=== PATIENT | female | born 1940 | race Caucasian/White ===

== ENCOUNTER 2020-11-08 09:35 | Outpatient (REF) | payer MEDICARE, SELFPAY ==
[2020-11-08 10:11] LABS: Basophils Percent Auto 0.5 % (0-2); Eosinophils Absolute Auto 0.1 X10*3/uL (0.0-0.4); Eosinophils Percent Auto 1.7 % (0-4); Hematocrit 43.1 % (37-47); Hemoglobin 14.3 g/dl (12.0-16.0); Imm Gran Abs Auto 0.02 X10*3/uL (0.00-0.03); Imm Gran Pct Auto 0.3 % (0.0-0.4); Lymphocytes Absolute Auto 1.7 X10*3/uL (1.2-4.9); Lymphocytes Percent Auto 22.7 % (20-40); MANUAL DIFF FLAG NO; Mean Corpuscular HGB Conc 33.2 g/dl (31.0-35.0); Mean Corpuscular Hemoglobin 30.4 pg (27.0-33.0); Mean Corpuscular Volume 91.7 fL (80-98); Mean Platelet Volume 10.1 fL (9.4-12.3); Monocytes Absolute Auto 0.6 X10*3/uL (0.1-1.2); Monocytes Percent Auto 8.3 % (2-11); Neutrophils Percent Auto 66.5 % (45-73); Platelet Count 152 X10*3/uL (160-400); Red Cell Distribution Width 13.3 % (11.0-16.0); White Blood Count 7.6 X10*3/uL (4.8-10.8)
[2020-11-08 10:24] LABS: Estimated Average Glucose 197 mg/dL; Hemoglobin A1c % 8.5 %
[2020-11-08 10:44] LABS: Alanine Aminotransferase 12 U/L (0-31); Albumin Level 4.1 g/dL (3.5-5.0); Alkaline Phosphatase 62 U/L (39-117); Anion Gap 12 (12-20); Aspartate Amino Transferase 17 U/L (5-31); Bilirubin Total 0.6 mg/dL (0.0-1.0); Blood Urea Nitrogen 17 mg/dL (9-16); Calcium 9.2 mg/dL (8.4-10.2); Carbon Dioxide 31 mmol/L (22-29); Chloride 102 mmol/L (96-108); Cholesterol 168 mg/dL; Estimated Glomerular Filt Rate > 60; Glucose Fasting 158 mg/dL (60-99); HDL Cholesterol 47 mg/dL; LDL Cholesterol Calculated 93 mg/dl; Potassium 4.5 mmol/l (3.3-5.1); Sodium 140 mmol/L (135-145); Total Protein 6.8 g/dL (6.5-8.0); Triglycerides 143 mg/dL
[2020-11-08 11:44] LABS: Reflex LDLD? No
== END 2020-11-08 09:36 | disposition home or self-care (01) ==
LOC: HO.LAB 09:35
PROVIDERS: PCP Internal Medicine; Visit Provider Internal Medicine
DX: E78.00 Pure hypercholesterolemia, unspecified (principal); I10 Essential (primary) hypertension; E04.9 Nontoxic goiter, unspecified; E11.42 Type 2 diabetes mellitus with diabetic polyneuropathy; D36.9 Benign neoplasm, unspecified site
CPT/HCPCS: 36415; 80053; 80061; 83036; 84443; 85025

== ENCOUNTER 2021-01-26 12:44 | Outpatient (REF) | payer MEDICARE, SELFPAY ==
--- NOTE | ~2021-01-26 | CT_ITS ---
EXAMINATION: CT CHEST WITHOUT CONTRAST CLINICAL INFORMATION: Lung nodule. COMPARISON: CT chest 11/26/[address] chest 04/28/2019 TECHNIQUE: Multidetector volumetric CT imaging of the chest was done. Axial MIP volume rendering provided. Sagittal and coronal reformatted images were obtained. This CT examination was performed using dose optimization techniques as appropriate, variously including the following: *Automated exposure control *Adjustment of mA and/or kV according to patient size (this includes techniques or standardized protocols for targeted exams where dose is matched to indication/reason for exam; i.e. 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 LUNGS: The lungs are well-expanded without any acute pneumonic process. There are multiple bilateral pulmonary nodules. A dominant left lower lobe pulmonary nodule measures 6 mm on image 263/9, a dominant nodule in the right lower lobe measures 5 mm posterior pericardium on axial image 269/9, and a 4 mm nodule in the right basal segment of lower lobe is also unchanged. There are no new pulmonary nodules visualized. MEDIASTINUM: The left thyroid lobe is heterogenous but not enlarged. The right lobe appears removed. Central trachea and the bronchi are widely patent. The heart size and the great vessels are normal caliber. Nonspecific calcification anterior to the ascending aorta likely lymph node calcifications, stable. The great vessels and the heart size are normal. There are coronary artery calcifications present. No pericardial effusion seen. No abnormal size mediastinal or hilar lymph nodes seen. PLEURA: There is no pleural effusion. No pleural mass or thickening. AXILLA: No lymphadenopathy. UPPER ABDOMEN: Visualized liver, spleen, pancreas, and left adrenal gland appear unremarkable. The right adrenal gland is slightly prominent, known 1.6 cm adenoma. OSSEOUS STRUCTURES: No lytic or sclerotic process seen. There is mild spondylosis mid dorsal spine. CT/CT chest wo con IMPRESSION: Multiple bilateral pulmonary nodules. These are stable over 24 months. Recommend long-term followup in 1-2 years.
[2021-01-26 14:32] LABS: Creatinine Urine 66.93 mg/dL; Microalbumin Urine < 5.0 mg/L
== END 2021-01-26 12:45 | disposition home or self-care (01) ==
LOC: HO.CT 12:44
PROVIDERS: Visit Provider Internal Medicine
DX: R91.1 Solitary pulmonary nodule (principal); D36.9 Benign neoplasm, unspecified site; E11.42 Type 2 diabetes mellitus with diabetic polyneuropathy; E04.9 Nontoxic goiter, unspecified; E78.00 Pure hypercholesterolemia, unspecified; I10 Essential (primary) hypertension
CPT/HCPCS: 71250; 82043

== ENCOUNTER 2021-06-09 10:27 | Outpatient (REF) | payer MEDICARE, SELFPAY ==
[2021-06-09 10:59] LABS: Alanine Aminotransferase 12 U/L (0-31); Alkaline Phosphatase 61 U/L (39-117); Aspartate Amino Transferase 16 U/L (5-31); Bilirubin Direct 0.2 mg/dL (0.0-0.5); Bilirubin Total 0.6 mg/dL (0.0-1.0); Cholesterol 173 mg/dL; Estimated Average Glucose 223 mg/dL; Glucose Fasting 173 mg/dL (60-99); HDL Cholesterol 41 mg/dL; Hemoglobin A1c % 9.4 %; LDL Cholesterol Calculated 97 mg/dl; Total Protein 6.8 g/dL (6.5-8.0); Triglycerides 179 mg/dL
[2021-06-09 11:19] LABS: Vitamin D 25-OH Total 17.3 ng/mL (>30)
[2021-06-09 11:49] LABS: Reflex LDLD? No
== END 2021-06-09 10:28 | disposition home or self-care (01) ==
LOC: HO.LNP 10:27
PROVIDERS: Visit Provider Internal Medicine
DX: E11.42 Type 2 diabetes mellitus with diabetic polyneuropathy (principal); E78.00 Pure hypercholesterolemia, unspecified; M85.88 Other specified disorders of bone density and structure, other site
CPT/HCPCS: 80061; 80076; 82306; 82947; 83036

== ENCOUNTER 2021-07-04 08:22 | Outpatient (REF) | payer MEDICARE, SELFPAY ==
--- NOTE | ~2021-07-04 | US_ITS ---
EXAMINATION: US ABDOMEN COMPLETE CLINICAL INFORMATION: Calculus of gallbladder. COMPARISON: CT abdomen with intravenous contrast dated 12/08/2015. TECHNIQUE: Real-time imaging of the abdominal viscera. FINDINGS: PANCREAS: Normal. ABDOMINAL AORTA: The proximal, mid, and distal segments are normal in caliber. INFERIOR VENA CAVA: Visualized portions are normal. LIVER: The liver is normal in size. The liver contour is normal. There is diffuse increased liver parenchymal echogenicity, consistent with hepatic steatosis. No focal hepatic lesion. There is no intrahepatic biliary duct dilatation seen. GALLBLADDER: Normal. The gallbladder is physiologically distended without evidence of stones, sludge, polyps, wall thickening or pericholecystic fluid. COMMON BILE DUCT: Normal in caliber measuring 0.56 cm in diameter. RIGHT KIDNEY: Normal. No hydronephrosis. No renal calculi or focal parenchymal lesions. The kidney measures 10.8 cm in maximum dimension. LEFT KIDNEY: Left midpole simple renal cyst measuring 1.8 cm, unchanged. Midpole renal stone measuring 0.7 cm, unchanged. No hydronephrosis. The kidney measures 9.3 cm in maximum dimension. SPLEEN: Normal. The spleen measures 9.2 cm in maximum dimension. FREE FLUID: None. US/US abdomen complete IMPRESSION: 1. Increased hepatic parenchymal echogenicity, which could represent mild steatosis. No focal parenchymal lesion or biliary ductal dilatation. 2. Stable left midpole simple-appearing renal cysts. Stable left midpole renal stone measuring 0.7 cm. No hydronephrosis. 3. No cholelithiasis, gallbladder wall thickening, or pericholecystic free fluid to suggest acute cholecystitis.
== END 2021-07-04 08:23 | disposition home or self-care (01) ==
LOC: HO.HMGCX 08:22
PROVIDERS: PCP Internal Medicine; Visit Provider Internal Medicine
DX: K80.20 Calculus of gallbladder without cholecystitis without obstruction (principal)
CPT/HCPCS: 76700

== ENCOUNTER 2021-07-18 10:53 | Day surgery (SDC) | payer MEDICARE, SELFPAY ==
--- NOTE | 2021-07-15 10:09 | HO.ANESPROP2 ---
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 Urinary incontinence Surgical History Surgical History History of cataract extraction History of ERCP History of hysterectomy Hx of colonoscopy Hx of esophagogastroduodenoscopy Social History Social History Patient Tobacco Use Status: Never used Tobacco Use of substances other than those prescribed or required for medical reasons: No Are you DNR?: No Advance Directives: No Advance Directives Information Provided: Yes Meds Allergies Allergy/AdvReac Type Severity Reaction Status Date / Time atropine [ATROPINE] Allergy Intermediate HIGH BP Verified 07/18/21 12:04 Iodinated Contrast Media Allergy Intermediate RASH Verified 07/18/21 12:04 [CONTRAST, IV] iodine [IODINE] Allergy Intermediate RASH Verified 07/18/21 12:04 Home Medications Medication Instructions Recorded Confirmed Last Taken Type estradiol 0.05 mg/24 hr weekly 1 patch TRANSDERMAL QWEEK 07/15/21 07/15/21 Unknown History transdermal patch glyburide 5 mg tablet 1 tab PO BID 07/15/21 07/15/21 Unknown History latanoprost 0.005 % eye drops 1 drp BEDTIME 07/15/21 07/15/21 Unknown History lisinopril 10 mg tablet 1 tab PO DAILY 07/15/21 07/15/21 Unknown History metformin 500 mg tablet 1 tab PO DAILY 07/15/21 07/15/21 Unknown History multivitamin 1 tab PO DAILY 07/15/21 07/15/21 Unknown History rosuvastatin 20 mg tablet 1 tab PO DAILY 07/15/21 07/15/21 Unknown History Exam Exam Date and Time: July 15, 2021 100 Assessment and Plan Assessment Anesthesia Assessment: Chart Reviewed Documented by User: Charlene Crews MD 07/18/21 17:06 [facility] Past Medical History Medical History (Updated 07/18/21 @ 12:03 by Mary Jo Cooley, TOM) Elevated cholesterol Glaucoma Goiter HTN (hypertension) HX: benign breast biopsy Kidney stone 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 Urinary incontinence Family History Family history of problems with anesthesia: No Surgical History Surgical History History of cataract extraction History of ERCP History of hysterectomy Hx of colonoscopy Hx of esophagogastroduodenoscopy History of Problems with Anesthesia: Yes (PONV) Social History Social History Patient Tobacco Use Status: Never used Tobacco Use of substances other than those prescribed or required for medical reasons: No Are you DNR?: No Advance Directives: No Advance Directives Information Provided: Yes Meds Allergies Allergy/AdvReac Type Severity Reaction Status Date / Time atropine [ATROPINE] Allergy Intermediate HIGH BP Verified 07/18/21 12:04 Iodinated Contrast Media Allergy Intermediate RASH Verified 07/18/21 12:04 [CONTRAST, IV] iodine [IODINE] Allergy Intermediate RASH Verified 07/18/21 12:04 Home Medications Medication Instructions Recorded Confirmed Last Taken Type estradiol 0.05 mg/24 hr weekly 1 patch TRANSDERMAL QWEEK 07/15/21 07/15/21 Unknown History transdermal patch glyburide 5 mg tablet 1 tab PO BID 07/15/21 07/15/21 Unknown History latanoprost 0.005 % eye drops 1 drp BEDTIME 07/15/21 07/15/21 Unknown History lisinopril 10 mg tablet 1 tab PO DAILY 07/15/21 07/15/21 Unknown History metformin 500 mg tablet 1 tab PO DAILY 07/15/21 07/15/21 Unknown History multivitamin 1 tab PO DAILY 07/15/21 07/15/21 Unknown History rosuvastatin 20 mg tablet 1 tab PO DAILY 07/15/21 07/15/21 Unknown History Exam Height,Weight and Vital Signs: Height 5 ft 1 in Weight 58.967 kg Vital Signs Temp Pulse Resp BP Pulse Ox 07/18/21 12:04 98.6 F 76 16 166/75 H 98 Pertinent Lab Results Pertinent Lab Results: Lab Results 07/18/21 Range/Units 12:16 POC Glucose 170 H (60-115) mg/dL Airway Mallampati Class: II TM Dist: >3cm Neck ROM: Full Denture: Upper Partial: Lower Heart: RRR Lungs: CTAB Assessment and Plan Assessment Anesthesia Assessment: Anesthesia Plan Discussed Final Anesthetic Review Family History of Problems with Anesthesia: No History of Problems with Anesthesia: Yes (PONV) NPO: Yes ASA Class: II Final Preanesthetic Review: No Changes in Pt Med Stat, Meds/Allgs Chart Reviewed, Consent Obtained/Reviewed and Anes Risks/Benef Reviewed Patient Risk: Low Procedure Risk: Low Assessment/Block/Sedation in SS: Assess/Block/Sedation-SS Anesthetic Plan Anesthetic Plan: MAC: Disposition: Standard PACU
[2021-07-18 12:04] VITALS: BP 166/75; PULSE 76; RESP 16; TEMP 37; O2SAT 98; BMI 24.5
[2021-07-18 12:20] LABS: Glucose, Whole Blood 170 mg/dL (60-115)
[2021-07-18] MEDS: Lactated Ringers 1,000 ML 100 ML IVCONT (12:33)
[2021-07-18 14:25] VITALS: BP 92/45; PULSE 89; RESP 18; TEMP 36.1; O2SAT 98
--- NOTE | 2021-07-18 14:28 | PM.OP ---
Brief Operative Note Date of Service: 07/18/21 Pre-op diagnosis: Abdominal pain, History of ampullary villous adenoma Post-op diagnosis: other (Gastritis, Gastric polyps, Hiatal hernia, Normal major ampulla) Procedure: EGD with biopsy Surgeon: Gutierrez Brito Anesthesia: MAC Was an Gas Fitter Helper used for this Procedure?: No Estimated blood loss (mL): 4.0 Pathology: other (A. Gastric antrum) Condition: stable Disposition: PACU
[2021-07-18 14:40] VITALS: BP 123/61; PULSE 88; RESP 16; O2SAT 96
[2021-07-18 14:56] VITALS: BP 139/70; PULSE 84; RESP 16; O2SAT 96
[2021-07-18] MEDS: ondansetron HCL 4 MG/2 ML VIAL IVPUSH (15:00)
[2021-07-18 15:10] VITALS: BP 142/70; PULSE 83; RESP 16; TEMP 36.1; O2SAT 96
[2021-07-18 15:25] VITALS: BP 144/77; PULSE 76; RESP 16; TEMP 36.1; O2SAT 97
--- NOTE | 2021-07-18 20:18 | OP_ITS ---
SURGEON: Gutierrez Brito MD INDICATIONS: The patient presents for evaluation of abdominal pain and a previous history of an ampullary tubulovillous adenoma. Full consent has been obtained from her for this, including risks of bleeding and perforation. PREOPERATIVE DIAGNOSIS: POSTOPERATIVE DIAGNOSIS: PROCEDURE PERFORMED: Esophagogastroduodenoscopy with biopsies. ESTIMATED BLOOD LOSS: COMPLICATIONS: ANESTHESIA: Monitored anesthesia care and glucagon 1 mg IV x1 dose. ASSISTANTS: SPECIMENS: PREOPERATIVE DIAGNOSES: Abdominal pain and history of ampullary tubulovillous adenoma. POSTOPERATIVE DIAGNOSES: Abdominal pain and history of ampullary tubulovillous adenoma, gastritis, gastric polyps, hiatal hernia, normal major ampulla. DESCRIPTION OF PROCEDURE: The patient was placed in the left lateral decubitus position. The Olympus video gastroscope was passed in the posterior oropharynx and upper esophagus under direct vision. The scope was passed slowly into the distal esophagus. The gastroesophageal junction appeared normal at 35 cm. There was no sign of any esophagitis nor Akers's esophagus. The scope entered into the stomach. There was a small hiatal hernia. The scope was advanced to pylorus and the duodenum was cannulated to the descending portion. The duodenum including the bulb appeared normal without mass or ulceration. The scope was withdrawn back into the stomach. The gastric antrum appeared normal with good peristalsis. The scope was retroflexed visualizing the proximal stomach carefully, which appeared normal other than multiple hyperplastic appearing gastric polyps. In the forward viewing position along the posterior wall in the body of the stomach, was areas of erosive gastritis. There was no ulceration or mass. The scope was advanced back to the antrum and biopsies were obtained to inspect for H pylori. Scope was withdrawn back into the esophagus. The esophageal mucosa appeared normal. The scope was withdrawn from the patient. The Olympus video duodenoscope was then passed into the posterior oropharynx and upper esophagus. Scope was advanced to the stomach and then into the pylorus. The duodenum was cannulated the descending portion. The region of the major papilla was visualized and appeared consistent with a previous known sphincterotomy, but without any sign of ampullary mass nor ulceration. Biopsies were not obtained. At that point, the scope was then withdrawn from the patient. She tolerated the procedure well and was returned to the recovery area in stable condition. IMPRESSION: 1. Erosive gastritis, rule out Helicobacter pylori. 2. Hiatal hernia. 3. Proximal gastric polyps. 4. Normal major ampulla. PLAN: The results of biopsy will be checked. If Helicobacter pylori is present in the gastric biopsies, we could consider treating that given the findings in the more proximal stomach with gastritis and her abdominal pain. At this point, she does report that she is feeling somewhat better, but still having some residual abdominal discomfort. She had been on Prilosec in the past, but I shall put her back on omeprazole 20 mg daily for at least a couple of months and then see her in followup for further evaluation. She was advised to stay off all aspirin and NSAIDs long-term. MD ALBERTA Sims/SERENA / [id number]
== END 2021-07-18 15:51 | disposition home or self-care (01) ==
PROVIDERS: PCP Internal Medicine; Visit Provider Internal Medicine
PROC: 0DJ08ZZ Inspection of Upper Intestinal Tract, Via Natural or Artificial Opening Endoscopic (ICD-10-PCS; CPT 43235; principal; 2021-07-18 12:40)
DX: K29.50 Unspecified chronic gastritis without bleeding (principal); Z86.018 Personal history of other benign neoplasm; R10.11 Right upper quadrant pain; K31.7 Polyp of stomach and duodenum; K44.9 Diaphragmatic hernia without obstruction or gangrene; I10 Essential (primary) hypertension; E11.9 Type 2 diabetes mellitus without complications; Z79.84 Long term (current) use of oral hypoglycemic drugs; Z79.899 Other long term (current) drug therapy; Z87.442 Personal history of urinary calculi
CPT/HCPCS: 43239; 82947; 88305; 88342; J1610; J2405; J2765

== ENCOUNTER 2021-11-22 10:45 | Outpatient (REF) | payer MEDICARE, SELFPAY ==
[2021-11-22 10:48] LABS: MANUAL DIFF FLAG NO
[2021-11-22 11:24] LABS: Basophils Percent Auto 0.4 % (0-2); Eosinophils Absolute Auto 0.1 X10*3/uL (0.0-0.4); Eosinophils Percent Auto 1.6 % (0-4); Hematocrit 42.7 % (37.0-47.0); Hemoglobin 13.9 g/dl (12.0-16.0); Imm Gran Abs Auto 0.01 X10*3/uL (0.00-0.03); Imm Gran Pct Auto 0.1 % (0.0-0.4); Lymphocytes Percent Auto 26.8 % (20-40); Mean Corpuscular HGB Conc 32.6 g/dl (31.0-35.0); Mean Corpuscular Hemoglobin 29.8 pg (27.0-33.0); Mean Corpuscular Volume 91.6 fL (80.0-98.0); Mean Platelet Volume 10.9 fL (9.4-12.3); Monocytes Absolute Auto 0.7 X10*3/uL (0.1-1.2); Monocytes Percent Auto 9.2 % (2-11); Neutrophils Absolute Auto 4.6 x10*3/uL (2.0-8.3); Neutrophils Percent Auto 61.9 % (45-73); Platelet Count 170 X10*3/uL (160-400); Red Blood Count 4.66 X10*6/uL (4.20-5.50); Red Cell Distribution Width 13.5 % (11.0-16.0); White Blood Count 7.4 X10*3/uL (4.8-10.8)
[2021-11-22 11:36] LABS: Alanine Aminotransferase 19 U/L (0-31); Alkaline Phosphatase 68 U/L (39-117); Anion Gap 10 (12-20); Aspartate Amino Transferase 18 U/L (5-31); Bilirubin Total 0.3 mg/dL (0.0-1.0); Blood Urea Nitrogen 15 mg/dL (9-16); Calcium 9.3 mg/dL (8.4-10.2); Carbon Dioxide 31 mmol/L (22-29); Chloride 104 mmol/L (96-108); Cholesterol 159 mg/dL; Estimated Glomerular Filt Rate > 60; Glucose Fasting 161 mg/dL (60-99); HDL Cholesterol 44 mg/dL; LDL Cholesterol Calculated 89 mg/dl; Potassium 4.3 mmol/L (3.3-5.1); Sodium 141 mmol/L (135-145); Total Protein 6.8 g/dL (6.5-8.0); Triglycerides 133 mg/dL
[2021-11-22 11:40] LABS: Estimated Average Glucose 183 mg/dL
[2021-11-22 11:57] LABS: TSH reflex Free T4 5.07 uIU/mL (0.32-4.0); Vitamin D 25-OH Total 28.8 ng/mL (>30)
[2021-11-22 12:34] LABS: Free T4 (Free Thyroxine) 1.06 ng/dL (0.71-1.85)
[2021-11-22 13:45] LABS: Reflex LDLD? No
== END 2021-11-22 10:46 | disposition home or self-care (01) ==
LOC: HO.LNP 10:45
PROVIDERS: Visit Provider Internal Medicine
DX: E11.42 Type 2 diabetes mellitus with diabetic polyneuropathy (principal); E78.00 Pure hypercholesterolemia, unspecified; I10 Essential (primary) hypertension; E04.9 Nontoxic goiter, unspecified; E55.9 Vitamin D deficiency, unspecified
CPT/HCPCS: 80053; 80061; 82306; 83036; 84439; 84443; 85025

== ENCOUNTER 2021-11-29 14:24 | Outpatient (REF) | payer MEDICARE, SELFPAY ==
[2021-11-29 14:39] LABS: Appearance Urine CLEAR; Color Urine YELLOW; Glucose Urine UA NEG (NEG); Leukocyte Esterase Urine NEG (NEG); Nitrite Urine NEG (NEG); PH 6.5 (5.0-8.0); Specific Gravity - Urine <= 1.005 (1.005-1.025); Urine Blood NEG (NEG); Urine Ketones NEG (NEG); Urine Protein NEG (NEG-TRACE)
[2021-11-29 14:49] LABS: RBC Urine 0 /HPF (0); Squamous Epithelial Cell Urine 1+ /LPF; WBC Urine 0 /HPF (0-4)
[2021-11-29 14:50] LABS: Bacteria Urine 1+ /LPF
[2021-11-29 15:10] LABS: Creatinine Urine 71.79 mg/dL; Microalbumin Urine < 5.0 mg/L
== END 2021-11-29 14:25 | disposition home or self-care (01) ==
LOC: HO.LNP 14:24
PROVIDERS: Visit Provider Internal Medicine
DX: E11.42 Type 2 diabetes mellitus with diabetic polyneuropathy (principal); I10 Essential (primary) hypertension; E78.00 Pure hypercholesterolemia, unspecified
CPT/HCPCS: 81001; 82043

== ENCOUNTER 2022-01-23 13:23 | Outpatient (REF) | payer MEDICARE, SELFPAY ==
--- NOTE | ~2022-01-23 | CT_ITS ---
EXAMINATION: CT CHEST WITHOUT CONTRAST CLINICAL INFORMATION: Pulmonary nodule COMPARISON: Previous chest x-ray most recent January 2021 TECHNIQUE: Multidetector volumetric CT imaging of the chest was done. Axial MIP volume rendering provided. Sagittal and coronal reformatted images were obtained. This CT examination was performed using dose optimization techniques as appropriate, variously including the following: *Automated exposure control *Adjustment of mA and/or kV according to patient size (this includes techniques or standardized protocols for targeted exams where dose is matched to indication/reason for exam; i.e. extremities or head) *Use of iterative reconstruction technique DLP: 130 mGy-cm FINDINGS: LUNGS: The small pulmonary nodules are stable. Largest pulmonary nodules measure 6 mm in the right lower lobe axial image 368 and 6 mm in the left lower lobe axial image 372 series 7. No new pulmonary nodule is seen. MEDIASTINUM: The right lobe of the thyroid gland has been removed. There are calcifications anterior to the aortic arch that are stable and may represent calcified lymph nodes. No enlarged lymph nodes are seen. There is coronary artery and aortic valve calcified. The heart does not appear enlarged. The thoracic aorta is normal in caliber. There is no pericardial effusion. PLEURA: There is no pleural effusion. No pleural mass or thickening. AXILLA: There is a subcutaneous soft tissue mass in the upper back slightly to the right of midline that is stable axial image 10 series. No enlarged axillary lymph nodes. UPPER ABDOMEN: Small left renal calcifications questionable for stone versus vascular calcifications. Partially visualized curvilinear calcification in the upper pole left kidney probably representing a cyst with wall calcification. Stable low-attenuation right adrenal nodule and calcification.. OSSEOUS STRUCTURES: There are degenerative changes of the spine. CT/CT chest wo con IMPRESSION: Stable pulmonary nodules, largest measuring 6 mm in the bilateral lower lobes coronary artery and aortic valve calcification. Stable abdominal findings. Post right thyroidectomy. Fleischner guidelines were followed.
== END 2022-01-23 13:24 | disposition home or self-care (01) ==
LOC: HO.CT 13:23
PROVIDERS: PCP Internal Medicine; Visit Provider Internal Medicine
DX: R91.1 Solitary pulmonary nodule (principal)
CPT/HCPCS: 71250

== ENCOUNTER 2022-05-29 10:59 | Outpatient (REF) | payer MEDICARE, SELFPAY ==
[2022-05-29 11:52] LABS: Alanine Aminotransferase 17 U/L (0-31); Albumin Level 4.1 g/dL (3.5-5.0); Alkaline Phosphatase 61 U/L (39-117); Aspartate Amino Transferase 18 U/L (5-31); Bilirubin Direct 0.3 mg/dL (0.0-0.5); Bilirubin Total 0.4 mg/dL (0.0-1.0); Cholesterol 169 mg/dL; Estimated Average Glucose 160 mg/dL; HDL Cholesterol 43 mg/dL; Hemoglobin A1c % 7.2 %; LDL Cholesterol Calculated 105 mg/dl; Total Protein 6.7 g/dL (6.5-8.0); Triglycerides 108 mg/dL
[2022-05-29 13:28] LABS: Reflex LDLD? No
== END 2022-05-29 11:00 | disposition home or self-care (01) ==
LOC: HO.LNP 10:59
PROVIDERS: Visit Provider Internal Medicine
DX: E11.42 Type 2 diabetes mellitus with diabetic polyneuropathy (principal); E78.00 Pure hypercholesterolemia, unspecified
CPT/HCPCS: 80061; 80076; 83036

== ENCOUNTER 2022-06-05 15:45 | Outpatient (REF) | payer MEDICARE, SELFPAY ==
[2022-06-05 16:26] LABS: Creatinine Urine 81.75 mg/dL; Microalbum/Creatinine Ratio Ur 6.1 ug/mg cr
== END 2022-06-05 15:46 | disposition home or self-care (01) ==
LOC: HO.LNP 15:45
PROVIDERS: Visit Provider Internal Medicine
DX: E11.42 Type 2 diabetes mellitus with diabetic polyneuropathy (principal)
CPT/HCPCS: 82043

== ENCOUNTER 2022-12-01 10:56 | Outpatient (REF) | payer MEDICARE, SELFPAY ==
[2022-12-01 11:01] LABS: MANUAL DIFF FLAG NO
[2022-12-01 11:04] LABS: Basophils Percent Auto 0.7 % (0-2); Eosinophils Absolute Auto 0.1 X10*3/uL (0.0-0.4); Eosinophils Percent Auto 1.7 % (0-4); Hematocrit 43.4 % (37.0-47.0); Hemoglobin 14.4 g/dl (12.0-16.0); Imm Gran Abs Auto 0.01 X10*3/uL (0.00-0.03); Imm Gran Pct Auto 0.2 % (0.0-0.4); Lymphocytes Absolute Auto 1.6 X10*3/uL (1.2-4.9); Lymphocytes Percent Auto 27.8 % (20-40); Mean Corpuscular HGB Conc 33.2 g/dl (31.0-35.0); Mean Corpuscular Hemoglobin 30.1 pg (27.0-33.0); Mean Corpuscular Volume 90.8 fL (80.0-98.0); Mean Platelet Volume 10.3 fL (9.4-12.3); Monocytes Absolute Auto 0.6 X10*3/uL (0.1-1.2); Monocytes Percent Auto 10.3 % (2-11); Neutrophils Absolute Auto 3.4 x10*3/uL (2.0-8.3); Neutrophils Percent Auto 59.3 % (45-73); Platelet Count 152 X10*3/uL (160-400); Red Blood Count 4.78 X10*6/uL (4.20-5.50); Red Cell Distribution Width 13.2 % (11.0-16.0); White Blood Count 5.7 X10*3/uL (4.8-10.8)
[2022-12-01 11:22] LABS: Alanine Aminotransferase 14 U/L (0-31); Alkaline Phosphatase 62 U/L (39-117); Anion Gap 13 (12-20); Aspartate Amino Transferase 20 U/L (5-31); Bilirubin Total 0.6 mg/dL (0.0-1.0); Blood Urea Nitrogen 18 mg/dL (9-16); Calcium 9.1 mg/dL (8.4-10.2); Carbon Dioxide 30 mmol/L (22-29); Chloride 103 mmol/L (96-108); Cholesterol 185 mg/dL; Estimated Glomerular Filt Rate > 60; Glucose Fasting 154 mg/dL (60-99); HDL Cholesterol 42 mg/dL; LDL Cholesterol Calculated 114 mg/dl; Potassium 4.3 mmol/L (3.3-5.1); Sodium 142 mmol/L (135-145); Total Protein 6.8 g/dL (6.5-8.0); Triglycerides 148 mg/dL
[2022-12-01 11:36] LABS: Estimated Average Glucose 194 mg/dL; Hemoglobin A1c % 8.4 %
[2022-12-01 11:40] LABS: Vitamin D 25-OH Total 23.5 ng/mL (>30)
== END 2022-12-01 10:57 | disposition home or self-care (01) ==
LOC: HO.LNP 10:56
PROVIDERS: PCP Internal Medicine; Visit Provider Internal Medicine
DX: I10 Essential (primary) hypertension (principal); E04.9 Nontoxic goiter, unspecified; E11.42 Type 2 diabetes mellitus with diabetic polyneuropathy; E78.00 Pure hypercholesterolemia, unspecified; E55.9 Vitamin D deficiency, unspecified
CPT/HCPCS: 80053; 80061; 82306; 83036; 84443; 85025

== ENCOUNTER 2022-12-08 15:56 | Outpatient (REF) | payer MEDICARE, SELFPAY ==
[2022-12-08 16:16] LABS: Appearance Urine Clear; Color Urine Yellow; Glucose Urine UA Negative (Negative); Leukocyte Esterase Urine Negative (Negative); Nitrite Urine Negative (Negative); Specific Gravity - Urine 1.015 (1.005-1.025); Urine Blood Negative (Negative); Urine Ketones Negative (Negative); Urine Protein Negative (Neg-Trace)
[2022-12-08 16:24] LABS: Bacteria Urine None Seen (None Seen); Hyaline Casts Urine 0-2 /LPF (0-2); RBC Urine 0-2 /HPF (0-2); Squamous Epithelial Cell Urine 0-2 /HPF (0-2); WBC Urine 0-5 /HPF (0-5)
[2022-12-08 16:28] LABS: Creatinine Urine 80.88 mg/dL; Microalbum/Creatinine Ratio Ur 7.4 ug/mg cr
== END 2022-12-08 15:57 | disposition home or self-care (01) ==
LOC: HO.LNP 15:56
PROVIDERS: Visit Provider Internal Medicine
DX: E11.42 Type 2 diabetes mellitus with diabetic polyneuropathy (principal)
CPT/HCPCS: 81001; 82043

== ENCOUNTER 2023-04-30 12:53 | Outpatient (RCR) | payer OTHER, MEDICARE, SELFPAY ==
[2023-04-30 13:00] VITALS: BP 149/69; PULSE 72
--- NOTE | 2023-04-30 14:07 | MHC.PT.EP ---
[facility] [place] Office [place] [facility] [place] Office [address] [phone] F: [phone] F: [phone] F: [phone] F: [phone] Physical Therapy Plan of Care Date of Evaluation: Date of Surgery: NA Diagnosis: Vertigo Assessment: Nathalia is a 83 year old female who is referred to PT for vertigo . She reports of having initial onset of vertigo after a fall about 2 months back where she hit her head and had LOC. She was d/c home after this fall and was doing good for about 6 weeks when she had sudden onset of dizziness and fell on her knees. She went to ED and was sent home with home PT and was advised to follow up outpatient for vertigo. On PT examination she presented with intact saccades, smooth pursuit, visual tracking, DVA, head thrust and good static balance. Dynamic balance impaired secondary to knee pain. She was negative for nystagmus and vertigo in B peña pikes and B roll test. She currently does not have any symptoms of vestibular dysfunction. She is receiving home PT for balance. Therefore no outpatient PT indicated at this time. She was advised to return to PT in case of return of symptoms. 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 Manual therapy to restore motion and function. Therapeutic exercise to improve strength and flexibility. Neuromuscular re-education for posture and balance. Therapeutic activities to return to functional activities of daily living. Electronically signed by: Tila Li PT DPT Please sign and return to therapist. Thank you for your referral.
--- NOTE | 2023-06-06 14:15 | MHC.PT.DC ---
[facility] [place] Office [place] Office [place] Office [address] [facility] [phone] F: [phone] F: [phone] F: [phone] F: [phone] Physical Therapy Discharge Report Diagnosis: Vertigo Date of Surgery: NA Date of Evaluation: 04/30/23 Date of Discharge: 06/06/23 Treatments to Date: 1 Cancellations to Date: 0 No Shows to Date: Discharge Status: Recommend MD Follow-up Discharge Summary: Nathalia has had no symptoms of vertigo in over a month. She is therefore being d/c from PT. Electronically signed by: Tila Li PT DPT Please sign and return to therapist. Thank you for your referral.
== END 2023-06-06 14:16 | disposition home or self-care (01) ==
LOC: HO.PT 12:53
PROVIDERS: PCP Internal Medicine; Visit Provider Internal Medicine
DX: R42 Dizziness and giddiness (principal)
CPT/HCPCS: 97112; 97161

== ENCOUNTER 2023-12-06 10:24 | Outpatient (REF) | payer OTHER, MEDICARE, SELFPAY ==
[2023-12-06 10:28] LABS: MANUAL DIFF FLAG NO
[2023-12-06 10:46] LABS: Appearance Urine Hazy; Color Urine Straw; Glucose Urine UA Negative (Negative); Leukocyte Esterase Urine Negative (Negative); Nitrite Urine Negative (Negative); PH 7.5 (5.0-9.0); Specific Gravity - Urine <= 1.005 (1.005-1.025); Urine Blood Negative (Negative); Urine Ketones Negative (Negative); Urine Protein Negative (Neg-Trace)
[2023-12-06 11:13] LABS: Bacteria Urine None Seen (None Seen); Hyaline Casts Urine 0-2 /LPF (0-2); RBC Urine 0-2 /HPF (0-2); Squamous Epithelial Cell Urine 0-2 /HPF (0-2); WBC Urine 0-5 /HPF (0-5)
[2023-12-06 11:21] LABS: Basophils Percent Auto 0.5 % (0-2); Eosinophils Absolute Auto 0.1 X10*3/uL (0.0-0.4); Eosinophils Percent Auto 2.2 % (0-4); Hematocrit 42.8 % (37.0-47.0); Hemoglobin 14.4 g/dl (12.0-16.0); Imm Gran Abs Auto 0.01 X10*3/uL (0.00-0.03); Imm Gran Pct Auto 0.2 % (0.0-0.4); Lymphocytes Absolute Auto 1.8 X10*3/uL (1.2-4.9); Lymphocytes Percent Auto 28.9 % (20-40); Mean Corpuscular HGB Conc 33.6 g/dl (31.0-35.0); Mean Corpuscular Hemoglobin 30.6 pg (27.0-33.0); Mean Corpuscular Volume 91.1 fL (80.0-98.0); Mean Platelet Volume 10.5 fL (9.4-12.3); Monocytes Absolute Auto 0.6 X10*3/uL (0.1-1.2); Monocytes Percent Auto 9.3 % (2-11); Neutrophils Absolute Auto 3.7 x10*3/uL (2.0-8.3); Neutrophils Percent Auto 58.9 % (45-73); Platelet Count 144 X10*3/uL (160-400); Red Cell Distribution Width 13.2 % (11.0-16.0); White Blood Count 6.3 X10*3/uL (4.8-10.8)
[2023-12-06 11:50] LABS: Alanine Aminotransferase 19 U/L (0-31); Alkaline Phosphatase 70 U/L (39-117); Anion Gap 11 (12-20); Aspartate Amino Transferase 21 U/L (5-31); Bilirubin Total 0.5 mg/dL (0.0-1.0); Blood Urea Nitrogen 16 mg/dL (9-16); Calcium 9.5 mg/dL (8.4-10.2); Carbon Dioxide 32 mmol/L (22-29); Chloride 103 mmol/L (96-108); Cholesterol 175 mg/dL (<200); Estimated Glomerular Filt Rate > 60; Glucose Random 177 mg/dL (60-115); HDL Cholesterol 45 mg/dL (>40); LDL Cholesterol Calculated 99 mg/dL (<100); Potassium 4.4 mmol/L (3.3-5.1); Sodium 142 mmol/L (135-145); Total Protein 7.1 g/dL (6.5-8.0); Triglycerides 158 mg/dL (<150)
[2023-12-06 11:53] LABS: TSH reflex Free T4 3.95 uIU/mL (0.32-4.0); Vitamin D 25-OH Total 39.3 ng/mL (>30)
== END 2023-12-06 10:25 | disposition home or self-care (01) ==
LOC: HO.LNP 10:24
PROVIDERS: Visit Provider Internal Medicine
DX: I10 Essential (primary) hypertension (principal); E04.9 Nontoxic goiter, unspecified; E55.9 Vitamin D deficiency, unspecified; E78.00 Pure hypercholesterolemia, unspecified
CPT/HCPCS: 80053; 80061; 81001; 82306; 84443; 85025

== ENCOUNTER 2025-01-19 10:42 | Outpatient (REF) | payer OTHER, MEDICARE, SELFPAY ==
[2025-01-19 11:05] LABS: Basophils Absolute Auto 0.1 X10*3/uL (0.0-0.2); Basophils Percent Auto 0.8 % (0-2); Eosinophils Absolute Auto 0.1 X10*3/uL (0.0-0.4); Eosinophils Percent Auto 1.7 % (0-4); Hematocrit 43.2 % (37.0-47.0); Hemoglobin 14.5 g/dl (12.0-16.0); Imm Gran Abs Auto 0.02 X10*3/uL (0.00-0.03); Imm Gran Pct Auto 0.3 % (0.0-0.4); Lymphocytes Absolute Auto 1.5 X10*3/uL (1.2-4.9); Lymphocytes Percent Auto 23.5 % (20-40); MANUAL DIFF FLAG NO; Mean Corpuscular HGB Conc 33.6 g/dl (31.0-35.0); Mean Corpuscular Hemoglobin 30.5 pg (27.0-33.0); Mean Corpuscular Volume 90.8 fL (80.0-98.0); Mean Platelet Volume 10.3 fL (9.4-12.3); Monocytes Absolute Auto 0.6 X10*3/uL (0.1-1.2); Monocytes Percent Auto 8.7 % (2-11); Neutrophils Absolute Auto 4.2 x10*3/uL (2.0-8.3); Platelet Count 171 X10*3/uL (160-400); Red Blood Count 4.76 X10*6/uL (4.20-5.50); Red Cell Distribution Width 13.3 % (11.0-16.0); White Blood Count 6.5 X10*3/uL (4.8-10.8)
[2025-01-19 11:07] LABS: Appearance Urine Clear; Color Urine Yellow; Glucose Urine UA Negative (Negative); Leukocyte Esterase Urine Small (1+) (Negative); Nitrite Urine Negative (Negative); PH >= 9.0 (5.0-9.0); UMIC TRIGGER UACC YES; Urine Blood Negative (Negative); Urine Ketones Negative (Negative); Urine Protein Negative (Neg-Trace)
[2025-01-19 11:16] LABS: Bacteria Urine None Seen (None Seen); Hyaline Casts Urine 0-2 /LPF (0-2); RBC Urine 0-2 /HPF (0-2); Squamous Epithelial Cell Urine 0-2 /HPF (0-2); UACC Culture Trigger YES; WBC Urine 0-5 /HPF (0-5)
[2025-01-19 11:19] LABS: Estimated Average Glucose 197 mg/dL; Hemoglobin A1C 263.9293 umol/L; Hemoglobin A1c % 8.5 % (<6.0); Total Hemoglobin (HGBA1C) 3780.8604 umol/L
[2025-01-19 11:42] LABS: Alanine Aminotransferase 27 U/L (0-31); Albumin Level 4.1 g/dL (3.5-5.0); Alkaline Phosphatase 73 U/L (39-117); Anion Gap 10 (12-20); Aspartate Amino Transferase 28 U/L (5-31); Bilirubin Total 0.6 mg/dL (0.0-1.0); Blood Urea Nitrogen 19 mg/dL (9-16); Calcium 9.4 mg/dL (8.4-10.2); Carbon Dioxide 32 mmol/L (22-29); Chloride 104 mmol/L (96-108); Cholesterol 184 mg/dL (<200); Estimated Glomerular Filt Rate > 60; Glucose Fasting 171 mg/dL (60-99); HDL Cholesterol 47 mg/dL (>40); LDL Cholesterol Calculated 108 mg/dL (<100); Potassium 4.4 mmol/L (3.3-5.1); Sodium 142 mmol/L (135-145); Total Protein 7.5 g/dL (6.5-8.0); Triglycerides 145 mg/dL (<150)
[2025-01-19 12:11] LABS: Creatinine Urine 45.21 mg/dL; Microalbumin Urine < 5.0 mg/L
--- OUTSIDE RECORDS SUMMARY | 2025-01-19 12:39 | XMS_ITS ---
Author Organization Sb Perkins MD Address [address] [place], [place] [id number] Care Team Providers Care Anthropology Faculty Member Name Role Phone Gregorio Sb Primary Care Provider [phone] REASON FOR VISIT REFILL GLYBURIDE 5MG Medications Medication SIG (Take, Route, Fr equency, Duration) Notes Start Date End Date Status glyBURIDE 5 MG as directed Orally t wice a day for 90 days Active Encounters Encounter Location Date Provider Diagnosis Sb Perkins MD [address] [place], [place] [id number] 07/25/2024 Sb Perkins Type 2 diabetes mellitus with diabetic polyneuropathy E11.42 Assessments Encounter Date Diagnosis (ICD Code) Assessment Notes Treatment Notes Treatment Clinical Notes Section Notes 07/25/2024 Type 2 diabetes mellitus with diabetic polyneuropathy (ICD-10 - E11.42) Plan Of Treatment Medication Medication Name Sig Start Date Stop Date Notes glyBURIDE 5 MG as directed Orally twice a day for 90 days Next Appt Details Provider Name:Sb stone, 01/26/2025 10:30:00 AM, [address], [address], [place], [place], [id number], Progress Notes * Nathalia LAU SheilaDOB: [birth year] (84 yo F)Acc No.[id number]:07/25/2024 Patient:?Nathalia Lau :1940???Age:84 Y???Sex:Female Address:[address] [place] [address], [place] [address] * Refills? Refill glyBURIDE Tablet, 5 MG, Orally, 180 Tablet, as directed, twice a day, 90 days, Refills=4 * true * Date:? Generated for Tanya pereira/Erin/eTikesmitting on:?01/19/2025 12:38 PM EST
--- OUTSIDE RECORDS SUMMARY | 2025-01-19 12:39 | XMS_ITS ---
Author Organization Sb Perkins MD Address [address] [place], [place] [id number] Care Team Providers Care Life Specialist Name Role Phone Sb Perkins Primary Care Provider Allergies Allergen (clinical drug ingredient) Drug/Non Drug Allergy documented on EMR Reaction Allergy Type Onset Date Status metformin Metformin HCl diarrhea Drug Allergy Act jean pierre Iodine rash Drug Allergy Active atropine Atropine Sulfate elevated BP Drug Allergy Active REASON FOR VISIT 3 month Medications Medication SIG (Take, Route, Frequency, Duration) Notes Start Date End Date Status Meclizine HCl 12.5 MG 0.5tablet as neede d Orally every 12 hrs Not-Taking metFORMIN HCl 500 MG TAKE ONE TABLET BY MOUTH EVERY DAY WITH A MEAL Not-Taking Dramamine 50 MG 1 tablet as needed O rally every 6 hrs Not-Taking metFORMIN HCl 500 MG 1 tablet with a jermaine l Orally twice a day 12/11/2023 Not-Taking PriLOSEC 20 MG 1 capsule Orally twi ce a day for 30 day(s) 06/12/2016 Not-Taking glyBURIDE 5 MG as directed Orally t wice a day Active Lisinopril 10 MG 1 tab Orally Once a day for 90 days Active PreserVision AREDS 2 - as directed Orally Active Crestor 20 MG 1 tablet Orally Once a day for 90 days 10/06/2016 Active Vital Signs Blood pressure systolic 120 mm Hg 10/13/20 24 Blood pressure diastolic 70 mm Hg 024 Height 61 in 10/13/2024 Weight 125 lbs 10/13/2024 BMI 23.62 kg/m2 10/13/2024 Encounters Encounter Location Date Provider Diagnosis Sb Perkins MD [address] [place], [place] [id number] 10/13/2024 Sb Perkins Type 2 diabetes mellitus with diabetic polyneuropathy E11.42 ; Cyst of breast, unspecified laterality N60.09 and Adrenal adenoma, right D35.01 Assessments Encounter Date Diagnosis (ICD Code) Assessment Notes Treatment Notes Treatment Clinical Notes Section Notes 10/13/2024 Type 2 diabetes mellitus with diabetic polyneuropathy (ICD-10 - E11.42) blood sugars are normal, will contnue current regiment 10/13/2024 Cyst of breast, unspecified laterality (ICD-10 - N60.09) needs to get her mammo/ patient will be calling to booked her own appt. 10/13/2024 Adrenal adenoma, right (ICD-10 - D35.01) needs to get back to urology/ patient will be calling to book her appt Plan Of Treatment Medication Medication Name Sig Start Date Stop Date Notes glyBURIDE 5 MG as directed Orally twice a day Treatment Notes Assessment Notes Type 2 diabetes mellitus wit h diabetic polyneuropathy blood sugars are normal, will contnue current regiment Cyst of breast, unspecified laterality n eeds to get her mammo/ patient will be calling to booked her own appt. Adrenal adenoma, right needs to get back to urology/ patient will be calling to book her appt Next Appt Details Follow Up: 4 Months, Reason: change physical to 4 mo Provider Name:Sb stone, 01/26/2025 10:30:00 AM, [address], [address], [place], [place], [id number], Progress Notes * Nathalia LAU: [birth year] (84 yo F)Acc No.[id number]:10/13/2024 Progress Notes Patient:?Nathalia Lau Provider:?Sb Perkins MD :1940???Age:84 Y???Sex:Female D ate:10/13/2024 [id number] Subjective: * Chief Complaints: * ???3 month * HPI: ???Symptom(s):? patient s a 84 yo female here for 3 month follow up visit, doing better. taking mylanta and simethicone and magnesium/ has gained 8 pounds. * ROS:?General/Constitutional:?Denies?Chills.?Denies?Fatigue.?Denies?Fever.?Denies?Headache.?ENT:?Patient denies?decreased sense of smell , any loss of taste , sore throat.?Denies?Sore throat.?Respiratory:?Denies?Cough.?Denies?Shortness of breath at rest.?Denies?Shortness of breath with exertion.?Gastrointestinal:?Denies?Diarrhea.?Denies?Nausea.?Musculoskeletal:?Patient denies?muscle aches.?Peripheral Vascular:?Patient denies?red and blue toes.? * Medical History:? * Surgical History:? * Hospitalization/Major Diagno stic Procedure:? * Medications:?TakingPreserVis ion AREDS 2 - Capsule as directed Orally Crestor 20 MG Tablet 1 tablet Orally Once a dayLisinopril 10 MG Tablet 1 tab Orally Once a dayglyBURIDE 5 MG Tablet as directed Orally twice a dayTaking PreserVision AREDS 2 - Capsule as directed Orally Taking Crestor 20 MG Tablet 1 tablet Orally Once a dayTaking Lisinopril 10 MG Tablet 1 tab Orally Once a dayTaking glyBURIDE 5 MG Tablet as directed Orally twice a dayNot-Taking/PRNDramamine 50 MG Tablet 1 tablet as needed Orally every 6 hrsmetFORMIN HCl 500 MG Tablet 1 tablet with a meal Orally twice a dayMeclizine HCl 12.5 MG Tablet 0.5tablet as needed Orally every 12 hrsmetFORMIN HCl 500 MG Tablet TAKE ONE TABLET BY MOUTH EVERY DAY WITH A MEAL PriLOSEC 20 MG Capsule Delayed Release 1 capsule Orally twice a dayMedication List reviewed and reconciled with the patientNot-Taking/PRN Dramamine 50 MG Tablet 1 tablet as needed Orally every 6 hrsNot-Taking/PRN metFORMIN HCl 500 MG Tablet 1 tablet with a meal Orally twice a dayNot-Taking/PRN Meclizine HCl 12.5 MG Tablet 0.5tablet as needed Orally every 12 hrsNot-Taking/PRN metFORMIN HCl 500 MG Tablet TAKE ONE TABLET BY MOUTH EVERY DAY WITH A MEAL Not-Taking/PRN PriLOSEC 20 MG Capsule Delayed Release 1 capsule Orally twice a dayMedication List reviewed and reconciled with the patient * Allergies:?Atropine Sulfate: elevated BPMetformin HCl: diarrheaIodine: rashyes[Allergies Verified] Objective: * Vitals:?Ht: 61, Wt:125, BMI: 23.62, BP:120/70, Wt-k.7. * Examination: ???General Examination: ?GENERAL APPEARANCE:?well developed, well nourished.?HEAD:?normocephalic.?HEART:?no murmurs, rubs, gallops , regular rate and rhythm.?LUNGS:?no wheezes, rales, rhonchi , clear to auscultation bilaterally.? Assessment: * Assessment: 1.?Type 2 diabetes mellitus with diabetic polyneuropathy - E11.42?2.?Cyst of breast, unspecified laterality - N60.09?3.?Adrenal adenoma, right - D35.01? Plan: * Treatment: 2.?Cyst of breast, unspecifi ed laterality? Notes: needs to get her mammo/ patient will be calling to booked her own appt.?? 3.?Adrenal adenoma, right? Notes: needs to get back to urology/ patient will be calling to book her appt?? * Procedure Codes:? * Follow Up:?4 Months (Reason: change physical to 4 mo) * * Sign off status: Completed true * Provider:?Sb Perkins MD Date:?1 12/13/2023 Generated for Keithi randall/Erin/eTransmitting on:?01/19/2025 12:39 PM EST History and Physical Notes * HPI (History of Present Illness) Category Sub-Category Detail Notes Category Not es Symptom(s) patient s a 84 yo female here for 3 month follow up visit, doing better. taking mylanta and simethicone and magnesium/ has gained 8 pounds. Examination Category Sub-Category Detail Notes Category Not es General Examination GENERAL APPEARANCE: well developed , well nourished HEAD: normocephalic HEART: no murmurs, rubs, ga llops , regular rate and rhythm LUNGS: no wheezes, rales, r honchi , clear to auscultation bilaterally
--- OUTSIDE RECORDS SUMMARY | 2025-01-19 12:39 | XMS_ITS | Patient Health Record ---
Author Organization [facility] Address [address] [place] [address] Care Team Providers Care Field Pipelines Supervisor Name Role Phone Sb Perkins MD Primary Care Provider Gutierrez Swartz [phone] ALLERGIES Allergen (clinical drug ingredient) Drug/Non Drug Allergy documented on EMR Reaction Allergy Type Onset Date Status metformin Metformin HCl Unknown Drug Allergy Act jean pierre atropine Atropine Sulfate Unknown Drug Allergy Active iv dye (uncoded) rash Allergy Act jean pierre REASON FOR REFERRAL No Information MEDICATIONS Medication SIG (Take, Route, Frequency, Duration) Notes Start Date End Date Status Vitamin D prn Active Latanoprost 0.005 % 1 drop into affected eye in the evening Ophthalmic at HS Active Multivitamin MULTIVITAMIN one tablet Ora lly 3-4 times a week Active Eye Vitamins Active glyBURIDE 1 1 tablet with breakf ast or the first main meal of the day Orally Once a day Active Crestor 20 MG 1 tablet Orally Once a day Active Lisinopril 10 MG 1 tablet Orally Once a day Active Estradiol 0.75 MG/1.25 GM (0.06%) 1 patch to skin Transdermal weekly Active metFORMIN HCl 500 MG 1 tablet with a jermaine l Orally Once a day Active IMMUNIZATIONS Vaccine Route Administration Date Status Comme nts Influenza Unknown 07/12/2021 Refused SOCIAL HISTORY Sex Assigned At : Social History Observation Description Sex Assigned At Unknown PROBLEMS Problem Type ICD Code Onset Dates Problem Status W/U Status Risk SNOMED Code Notes Problem Encounter for screening for malignant neoplasm of colon (Z12.11) Active confirmed 265303675 Problem Other constipation (K59.09) Active confirmed 196435596 Problem Abdominal pain, epigastric (R10.13) Active confirmed 84656350 Problem Constipation, unspecified constipation type (K59.00) Active confirmed 78159641 Problem 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 46570062 Problem Chronic gastritis (K29.50) Active confirmed Chronic gastritis (7758454) Problem RUQ abdominal pain (R10.11) Active confirmed 165363310 PLAN OF TREATMENT Future Test Test Name Order Date COLONOSCOPY 08/25/2015 UPPER GI ENDOSCOPY 12/05/2016 UPPER GI ENDOSCOPY 03/28/2018 UPPER GI ENDOSCOPY 07/12/2021 Insurance Providers Payer Name Payer Address Payer Phone Subscriber Number Group Number Insured Name Patient Relationship to Insured Coverage Start Date Coverage End Date MEDICARE OF [place] [address] [place] [address] [id number] JAIME NEVAREZ Self - patient is the insured [employer] ATT[employer] CLAIMS [address] [place] [address] [id number] JAIME NEVAREZ Self - patient is the insured MEDICAL (GENERAL) HISTORY Medical History History ICD Code HTN NIDDM KIDNEY STONES Colonoscopy in 2004 a [facility] with Dr. Castro-she reports it as negative EGD in 2004 at [facility]- -also reports it as showing some GERD-with Dr. 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 Tomas on 12/28/2015 at [facility]--F/U exam 01/11/16 was neg. for residual adenoma; had a F/U ERCP with biopsies in 02/[address] Tomas---ERCP was normal and biopsies were negative for any adenoma(biopsies with me in 01/2017 were questionable for adenomatous tissue)---F/U ERCP in 02/[address] 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
--- OUTSIDE RECORDS SUMMARY | 2025-01-19 12:39 | XMS_ITS ---
Author Organization Sb Perkins MD Address [address] [place], [place] [id number] Care Team Providers Care Tailings Dam Laborer Name Role Phone Sb Perkins Primary Care Provider [phone] Results Component Value Reference Range Notes Complete Blood Count Auto Di ff (Not yet reviewed by provider) Interpretation: Performing Lab:[facility], [address] [place] [phone] Notes/Report: White Blood Count 6.5 4.8-10.8 X10*3/uL Red Blood Count 4.76 4.20-5.50 X10*6/uL Hemoglobin 14.5 12.0-16.0 g/dl Hematocrit 43.2 37.0-47.0 % Mean Corpuscular Volume 90.8 80.0-98.0 fL Mean Corpuscular Hemoglobin 30.5 27.0-33.0 pg Mean Corpuscular HGB Conc 33.6 31.0-35.0 g/dl Red Cell Distribution Width 13.3 11.0-16.0 % Platelet Count 171 160-400 X10*3/uL Mean Platelet Volume 10.3 9.4-12.3 fL Neutrophils Percent Auto 65.0 45-73 % Imm Gran Pct Auto 0.3 0.0-0.4 % Lymphocytes Percent Auto 23.5 20-40 % Monocytes Percent Auto 8.7 2-11 % Eosinophils Percent Auto 1.7 0-4 % Basophils Percent Auto 0.8 0-2 % NRBC Pct Auto 0.0 0.0-0.2 /100WBC Neutrophils Absolute Auto 4.2 2.0-8.3 x10*3/u L Imm Gran Abs Auto 0.02 0.00-0.03 X10*3/uL Lymphocytes Absolute Auto 1.5 1.2-4.9 X10*3/u L Monocytes Absolute Auto 0.6 0.1-1.2 X10*3/uL Eosinophils Absolute Auto 0.1 0.0-0.4 X10*3/u L Basophils Absolute Auto 0.1 0.0-0.2 X10*3/uL NRBC Abs Auto 0.000 0.0-0.012 X10*3/uL Comprehensive [place]. Panel Fa st (Not yet reviewed by provider) Interpretation: Performing Lab:[facility], [address] [place] [phone] Notes/Report: Sodium 142 135-145 mmol/L Potassium 4.4 3.3-5.1 mmol/L Chloride 104 96-108 mmol/L Carbon Dioxide 32 22-29 mmol/L Anion Gap 10 12-20 Blood Urea Nitrogen 19 9-16 mg/dL Creatinine 0.82 0.5-1.4 mg/dL Estimated Glomerular Filt Rate > 60 Chronic Kidney Disease: Estimated GFR < 60 mL/min/1.73m2 Severe Kidney Disease: Estimated GFR < 15 mL/min/1.73m2 Glucose Fasting 171 60-99 mg/dL A fasting glucose of 126 mg/dl or greater on more than one occasion is considered diagnostic of diabetes. Calcium 9.4 8.4-10.2 mg/dL Bilirubin Total 0.6 0.0-1.0 mg/dL Aspartate Amino Transferase 28 5-31 U/L Alanine Aminotransferase 27 0-31 U/L Total Protein 7.5 6.5-8.0 g/dL Albumin Level 4.1 3.5-5.0 g/dL Alkaline Phosphatase 73 39-117 U/L UA ClnCatch+Micro w/rflx Cul t (Not yet reviewed by provider) Interpretation: Performing Lab:[address] [id number] Notes/Report: Urine, Clean Catch Color Urine Yellow Appearance Urine Clear PH >= 9.0 5.0-9.0 Glucose Urine UA Negative Negative mg/dL Urine Blood Negative Negative Specific [place] - Urine 1.010 1.005-1.025 Urine Protein Negative Neg-Trace mg/dL Urine Ketones Negative Negative mg/dL Nitrite Urine Negative Negative Leukocyte Esterase Urine Small (1+) Negative RBC Urine 0-2 0-2 /HPF WBC Urine 0-5 0-5 /HPF Squamous Epithelial Cell Urine 0-2 0-2 /HPF Bacteria Urine None Seen None Seen Hyaline Casts Urine 0-2 0-2 /LPF Lipid Panel Reviewed date:01/19/2025 12:30:43 PM Interpretation: Performing Lab:[facility], [address] [place] [phone] Notes/Report: Triglycerides 145 <150 mg/dL Desirable Triglyceride: less than 150 mg/dL Borderline High Triglyceride 150-199 mg/dL High Triglyceride: 200-499 mg/dL Very High Triglyceride: greater than or equal to 5OO mg/dL Cholesterol 184 <200 mg/dL Desirable Cholesterol: less than 200 mg/dL Borderline High Cholesterol: 200-239 mg/dL High Cholesterol: greater than 239 mg/dL LDL Cholesterol Calculated 108 <100 mg/dL Desirable LDL: less than 100 mg/dL Near Optimal/Above Optimal LDL: 110-129 mg/dL Borderline High LDL: 130-159 mg/dL High LDL: 160-189 mg/dL Very High LDL: greater than or equal to 190 mg/dL HDL Cholesterol 47 >40 mg/dL Desirable HDL: greater than 40 mg/dL Note: This HDL assay may give artificially low results in patients with liver disease. Microalbumin, Random Reviewed date:01/19/2025 12:30:26 PM Interpretation: Performing Lab:[facility], [address] [place] [phone] Notes/Report: Creatinine Urine 45.21 Microalbumin Urine < 5.0 Microalbum/Creatinine Ratio Ur TNP <30 ug/mg cr Unable to calculate albumin/creatinine ratio due to low microalbumin or creatinine result. Hemoglobin A1c Reviewed date:01/19/2025 12:30:19 PM Interpretation: Performing Lab:[facility], [address] [place] [address], [place] [address] Notes/Report: Hemoglobin A1c % 8.5 <6.0 % Hemoglobin A1C Reference Range Adults: 4.8 - 6.0 % Non diabetic: < 6.0 % Goal: < 7.0 % Additional Action Suggested: > 8.0 % Note: Hemoglobin A1c results are invalid for patients with abnormal amounts of HbF. Blood transfusions may impact the HbA1c concentration in the patient sample. Estimated Average Glucose 197 eAG = Estimated average glucose which is %A1C expressed as average glucose, using the formula of the [id number] Average Glucose study (ADAG), Diabetes Care, Vol.31,#8, Jun. 2007 REASON FOR VISIT yearly fasting labs Encounters Encounter Location Date Provider Diagnosis Sb Perkins MD [address] [place] [address] [place] [phone] 01/19/2025 Sb Perkins Essential hypertensi on I10 ; Type 2 diabetes mellitus with diabetic polyneuropathy E11.42 and Pure hypercholesterolemia E78.00 Assessments Encounter Date Diagnosis (ICD Code) Assessment Notes Treatment Notes Treatment Clinical Notes Section Notes 01/19/2025 Essential hypertensi on (ICD-10 - I10) 01/19/2025 Type 2 diabetes vashti itus with diabetic polyneuropathy (ICD-10 - E11.42) 01/19/2025 Pure hypercholesterolemia (ICD-10 - E78.00) Plan Of Treatment Pending Test Test Name Order Date Complete Blood Count Auto Diff 5 Comprehensive [place]. Panel Fast 5 UA ClnCatch+Micro w/rflx Cult 01/19/2025 Next Appt Details Provider Name:Sb Holt iepatrice, 01/26/2025 10:30:00 AM, [address], [address], [place], [place], [id number], Progress Notes * Nathalia LAUDOB: [birth year] (84 yo F)Acc No.[id number]:01/19/2025 Progress Note Patient:?Nathalia LAU Provider:?Sb Perkins MD :1940???Age:84 Y???Sex:Female D ate:01/19/2025 Address:[address], [place], [place] Subjective: * Chief Complaints: * ???1. Yearly fasting labs. * Medical History:? Objective: * Vitals:? Assessment: * Assessment: 1.?Essential hypertension - I10 (Primary)???2.?Type 2 diabetes mellitus with diabetic polyneuropathy - E11.42???3.?Pure hypercholesterolemia - E78.00??? Plan: * Treatment: 2.?Type 2 diabetes mellitus with diabetic polyneuropathy?LAB: Complete Blood Count Auto Diff (Collection Date & Time - 01/19/2025 11:45 AM) ?LAB: Comprehensive [place]. Panel Fast (Collection Date & Time - 01/19/2025 07:45 AM) ?LAB: UA ClnCatch+Micro w/rflx Cult (Collection Date & Time - 01/19/2025 07:45 AM) ?LAB: Lipid Panel (Collection Date & Time - 01/19/2025 07:45 AM) ?LAB: Microalbumin, Random (Collection Date & Time - 01/19/2025 07:45 AM) ?LAB: Hemoglobin A1c (Collection Date & Time - 01/19/2025 07:45 AM) 3.?Pure hypercholesterolemia ?LAB: Complete Blood Count Auto Diff (Collection Date & Time - 01/19/2025 11:45 AM) ?LAB: Comprehensive [place]. Panel Fast (Collection Date & Time - 01/19/2025 07:45 AM) ?LAB: UA ClnCatch+Micro w/rflx Cult (Collection Date & Time - 01/19/2025 07:45 AM) ?LAB: Lipid Panel (Collection Date & Time - 01/19/2025 07:45 AM) ?LAB: Microalbumin, Random (Collection Date & Time - 01/19/2025 07:45 AM) ?LAB: Hemoglobin A1c (Collection Date & Time - 01/19/2025 07:45 AM) * Procedure Codes:?89412 VENIP UNCT, ROUTINE* * * The named appointment provid er may or may not be the originator of this progress note, and it is not deemed complete until electronically signed by the appointment provider. Sign off status: Pending * Provider:?Sb Perkins MD Date:?0 01/19/2025 Generated for Tanya pereira/Erin/Monchoitting on:?01/19/2025 12:39 PM EST
--- OUTSIDE RECORDS SUMMARY | 2025-01-19 12:40 | XMS_ITS | Clinical Summary ---
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 Name Role Phone Unavailable Primary Care Provider Unavailabl e Social History Tobacco Use Types Packs/Day Years Used Date Smoking Tobacco: Never Assessed Comments Unknown Sex and Gender Information Value Date Recorded Sex Assigned at Not on file Legal Sex Female 11:22 AM EST Gender Identity Not on file Sexual Orientation Not on file Plan of Treatment Upcoming Encounters Date Type Department Care Team (Late st Contact Info) Description 01/22/2025 9:00 AM EST Appointment [facility] Ultrasound [address] [place] [address] Health Maintenance Due Date Last Done Comments DTaP,Tdap,and Td Vaccines (1 - Tdap) 1960 Pneumococcal Vaccine: 50+ Ye ars (1 of 1 - PCV) 1991 Zoster Vaccines (1 of 2) 1991 RSV Immunization Patients 60 + Years Old (1 - 1-dose 75+ series) 2016 Depression Screening 10/17/2022 Falls Risk Assessment 10/17/2022 Medicare Annual Wellness Visit 10/17/2022 Social Influencers of Health Screening 10/17/2022 COVID-19 Vaccine (1 - 2023-2 5 season) 2024 Influenza Vaccine (#1) 2024 Osteoporosis Screening (Bone Density Screening) 12/19/2028 12/19/2018 HIB Vaccines Aged Out No longer eligi ble based on patient's age to complete this topic HPV Vaccines Aged Out No longer eligi ble based on patient's age to complete this topic Hepatitis A Vaccines Aged Out No long er eligible based on patient's age to complete this topic Hepatitis B Vaccines Aged Out No long er eligible based on patient's age to complete this topic IPV Vaccines Aged Out No longer eligi ble based on patient's age to complete this topic MMR Vaccines Aged Out No longer eligi ble based on patient's age to complete this topic Meningococcal ACWY Vaccine Aged Out N o longer eligible based on patient's age to complete this topic Meningococcal B Vacine Aged Out No lo nger eligible based on patient's age to complete this topic RSV Immunization Patients Un marco 20 months Aged Out No longer eligible b ased on patient's age to complete this topic Varicella Vaccines Aged Out No longer eligible based on patient's age to complete this topic Procedures Procedure Name Priority Date/Time Associated Diagnosis Comments [facility] DEXA AXIAL SKELETON Routine 12/19/2018 10:55 AM EST Other specified disorders of bone density and structure, unspecified site from Last 3 Months or Most Recently Relevant to Health Maintenance Results * [facility] DEXA AXIAL SKELETON (12/19/2018 10:55 AM EST) Anatomical Region Laterality Modality Mammography 12/19/2018 10:1 6 AM EST Narrative 12/19/2018 10:55 AM EST Diagnostic Imaging Department [address] [place] [address] Patient: ??NATHALIA LAU ?/Age/Sex: 1940 - 78 - F Unit#: ??[id number] ? Location/Status: ??SPDIMAM/REG CLI ? Mnemonic/Ordering Site: ??MAMDEXAAX/SPMAM Ordering Physician: ??SB LE MD Heather Dexa Axial Skeleton - 12/19/18 - 1049 HISTORY: ??The patient is a 78-year-old postmenopausal female with clinical concern for metabolic bone disease. FINDINGS: ??Dual energy x-ray absorptiometry of the lumbar spine and femurs is performed. The mean bone mineral density at L1-L4 (with the exclusion of L3) is 1.323 gm/cm2 which is 113% of that of young normals and 139% of that of age matched controls. This yields a T-score of 1.3 and a Z-score of 3.1 and there is therefore no evidence of osteoporosis or osteopenia here. The mean bone mineral density of the femurs bilaterally is 1.064 gm/cm2 which is 106% of that of young normals and 139% of that of age matched controls. ??This yields a T-score of 0.4 and a Z-score of 2.3 and there is therefore no evidence of osteoporosis or osteopenia here. However, the T-score of the right femoral neck is -1.4 and that of the left femoral neck is -1.1 which is diagnostic of osteopenia. IMPRESSION: 1. Osteopenia. ??There has been an increase of 1.5% in bone mineral density in the lumbar spine since the prior examination of 04/27/2016. ??There has been a decrease of 4.1% in bone mineral density in the right femur and a decrease of 5.8% in bone mineral density in the left femur. 2. FRAX analysis yields a 10-year probability of major osteoporotic fracture of 12.0% and a 10-year probability of hip fracture of 2.5%. Code 65594 Dictating Physician: ??IMTIAZ VILLAGRAN MD Electronically Signed by: ??IMTIAZ VILLAGRAN MD Dic Date/Time: ??12/19/18 1054 Sign date/Time: ??12/19/18 1055 Procedure Note Imtiaz Villagran MD - 11/08/2022 Diagnostic Imaging Department [address] [place] [address] Patient: NATHALIA LAU /Age/Sex: 1940 - 78 - F Unit#: [id number] Location/Status: SPDIMAM/REG CLI Mnemonic/Ordering Site: MAMDEXAAX/SPMAM Ordering Physician: SB LE MD Heather Dexa Axial Skeleton - 12/19/181048 HISTORY: The patient is a 78-year-old postmenopausal female withclinical concern for metabolic bone disease. FINDINGS: Dual energy x-ray absorptiometry of the lumbar spine and femursis performed. The mean bone mineral density at L1-L4 (with the exclusion ofL3) is 1.323 gm/cm2 which is 113% of that of young normals and 139% of that ofage matched controls. This yields a T-score of 1.3 and a Z-score of 3.1 andthere is therefore no evidence of osteoporosis or osteopenia here. The mean bone mineral density of the femurs bilaterally is 1.064 gm/kt3ekick is 106% of that of young normals and 139% of that of age matched controls.This yields a T-score of 0.4 and a Z-score of 2.3 and there is therefore noevidence of osteoporosis or osteopenia here. However, the T-score of the rightfemoral neck is -1.4 and that of the left femoral neck is -1.1 which is diagnosticof osteopenia. IMPRESSION: 1. Osteopenia. There has been an increase of 1.5% in bone mineral densityin the lumbar spine since the prior examination of 04/27/2016. There has derrick decrease of 4.1% in bone mineral density in the right femur and a decreaseof 5.8% in bone mineral density in the left femur. 2. FRAX analysis yields a 10-year probability of major osteoporoticfracture of 12.0% and a 10-year probability of hip fracture of 2.5%. Code 25279 Dictating Physician: IMTIAZ VILLAGRAN MD Electronically Signed by: IMTIAZ VILLAGRAN MD Dic Date/Time: 12/19/18 105 Sign date/Time: 12/19/18 105 Sb Le MD IMG BI PROCEDURES Final Res ult from Last 3 Months or Most Recently Relevant to Health Maintenance Insurance MEDICARE
== END 2025-01-19 10:43 | disposition home or self-care (01) ==
LOC: HO.LNP 10:42
PROVIDERS: Visit Provider Internal Medicine
DX: I10 Essential (primary) hypertension (principal); E11.42 Type 2 diabetes mellitus with diabetic polyneuropathy; E78.00 Pure hypercholesterolemia, unspecified
CPT/HCPCS: 80053; 80061; 81001; 82043; 82570; 83036; 85025; 87086